=== PATIENT | male | born 1995 | race Caucasian/White ===

== ENCOUNTER 2023-03-01 03:30 | Emergency (ER) | payer OTHER ==
[~2023-03-01] VITALS: Ht 172.7 cm; Wt 61.2 kg
[2023-03-01 03:37] VITALS: BP_SYST 117
[2023-03-01] MEDS ORDERED: ONDANSETRON 4 MG ODT TAB PO ONE (03:45)
[2023-03-01] MEDS ORDERED: ONDA8TAB60 PO (03:57)
[2023-03-01] MEDS ORDERED: IBUP-1969 PO (03:57)
[2023-03-01] MEDS ORDERED: KETOROLAC TROMETHAMINE 60 MG/2 ML VIAL IM ONE (04:00)
[2023-03-01 06:23] VITALS: BP_SYST 127
== END 2023-03-01 06:22 | disposition home or self-care (01) ==
LOC: SED 03:30
DX: R10.13 Epigastric pain (principal); R11.2 Nausea with vomiting, unspecified; Z79.899 Other long term (current) drug therapy
CPT/HCPCS: 99283; 96372; Q0162; J1885

== ENCOUNTER 2023-05-16 | Emergency (ER) | payer OTHER ==
[~2023-05-16] VITALS: Ht 172.7 cm; Wt 79.4 kg
[~2023-05-16] MED LIST: IBUP-1969 PO; ONDA8TAB60 PO
[2023-05-16 00:11] VITALS: BP_SYST 122; PULSE 53; RESP 16; TEMP 97.3; O2SAT 98
[2023-05-16] MEDS ORDERED: MUPI15CR12 TP (00:43)
[2023-05-16 00:51] VITALS: BP_SYST 122; PULSE 53; RESP 16; TEMP 97.5; O2SAT 98
== END 2023-05-16 00:48 | disposition home or self-care (01) ==
LOC: SED
DX: L73.9 Follicular disorder, unspecified (principal); L08.9 Local infection of the skin and subcutaneous tissue, unspecified; Z79.899 Other long term (current) drug therapy
CPT/HCPCS: 99283